=== PATIENT | female | born 1950 | race Caucasian/White ===

== ENCOUNTER 2023-11-28 11:22 | Outpatient (CLI) | payer OTHER | END 2023-11-28 11:23 | disposition home or self-care (01) | LOC: RAD 11:22 → LAB 11:22 → RAD 11:23 | PROVIDERS: ATTEND Obstetrics & Gynecology Gynecology | DX: Z76.89 Persons encountering health services in other specified circumstances (principal); D64.9 Anemia, unspecified; E88.9 Metabolic disorder, unspecified; D68.8 Other specified coagulation defects; N39.0 Urinary tract infection, site not specified; E11.65 Type 2 diabetes mellitus with hyperglycemia; B95.62 Methicillin resistant Staphylococcus aureus infection as the cause of diseases classified elsewhere; I10 Essential (primary) hypertension ==

== ENCOUNTER 2023-12-20 06:00 | Day surgery (SDC) | payer OTHER ==
[~2023-12-20 06:00] MED LIST: HORIZANT300 MG PO; OMEGA-31000 MG PO; RED YEAST RICE600 M1 PO; SYNTHROID50 MCG PO; ZIPSOR25 MG PO; ZOLOFT50 MG PO
[2023-12-20] MEDS ORDERED: GENTAMICIN SULFATE 40 MG/ML VIAL ONE (09:10)
[2023-12-20] MEDS ORDERED: CEFAZOLIN SODIUM 1,000 MG VIAL ONE ×2 (09:11→09:56)
[2023-12-20] MEDS ORDERED: TRAM1TAB98 PO (10:00)
[2023-12-20] MEDS ORDERED: MACROBID 100 M100 MG PO (10:00)
[2023-12-20] MEDS ORDERED: CEFAZOLIN SODIUM 1,000 MG VIAL IV ONE ×2 (10:30)
[2023-12-20] MEDS ORDERED: GENTAMICIN SULFATE 40 MG/ML VIAL IR ONE (10:30)
== END 2023-12-20 13:45 | disposition home or self-care (01) ==
LOC: CIR.AMB 06:00
PROVIDERS: ATTEND Obstetrics & Gynecology Gynecology
DX: N81.11 Cystocele, midline (principal); Z20.822 Contact with and (suspected) exposure to COVID-19